=== PATIENT | female | born 1940 | race Caucasian/White ===

== ENCOUNTER 2017-04-25 15:35 | Emergency (ER) | payer MEDICARE, OTHER ==
--- NOTE | 2017-04-25 16:28 | ERPHSYRPT ---
- History of Present Illness Time Seen by Provider: 04/25/17 16:21 Source: patient Exam Limitations: no limitations Patient Subjective Stated Complaint: PT THOUGHT SHE WAS BEING TO BECOME GAULDED AND STARTED USING SAYMAN SALVE AND CORN STARTCH, THEN STARTED USING MONISTAT AND AZO FOR 8 DAYS. PT SEEN KATHERINE THREE WEEKS AGO AND RECEIVED PREDNISONE X 4 DAYS AND THE ITCHING AND BURNING BECAME WORSE. PT SEEN MARGRET ON 04/25 AND SAID ITS LICHEN PLANUS AND GIVE HER FLUCONZALE 100MG. C/O PAIN, BURNING AND ITCHING IN THE GROIN AND VAGINAL AREA. Triage Nursing Assessment: PT ALERT X 3. PT WLKED BACK INTO THE ER. RESPIRATIONS EVEN AND UNLABORED. SKIN PINK WARM AND DRY. Physician History: FOR THE PAST 4 DAYS PT HAS HAD ITCHING AND DISCOMFORT IN THE VULVA. PT HAS ALSO HAD DIAPHORESIS IN THE PAST 2 DAYS. PT DENIES ABDOMINAL PAIN, FEVER, NAUSEA, VOMITING, CHEST PAIN. Allergies/Adverse Reactions: adhesive Allergy (Verified 05/13/14 23:16) aspirin Allergy (Verified 05/13/14 23:16) bacitracin [From Neosporin ([id number])] Allergy (Verified 05/13/14 23:16) bacitracin zinc [From Neosporin ([id number])] Allergy (Verified 05/13/14 23: 16) Iodinated Contrast- Oral and IV Dye [Iodinated Contrast Media - IV Dye] Allergy (Verified 05/13/14 23:16) iodine Allergy (Verified 05/13/14 23:16) latex Allergy (Verified 05/13/14 23:16) neomycin sulfate [From Neosporin ([id number])] Allergy (Verified 05/13/14 23: 16) Penicillins Allergy (Verified 05/13/14 23:16) phenytoin sodium [From Dilantin] Allergy (Verified 05/13/14 23:16) phenytoin sodium extended [From Dilantin] Allergy (Verified 05/13/14 23:16) polymyxin B [From Neosporin ([id number])] Allergy (Verified 05/13/14 23:16) RUBBER Allergy (Uncoded 05/13/14 23:16) Home Medications: Diazepam [Valium] 2 mg PO UD PRN 05/13/14 [History] Docusate Sodium 100 mg [Colace 100 MG] 100 mg PO DAILY 05/13/14 [History] Hydrochlorothiazide 25 mg [hydroDIURIL 25 MG] 0 mg PO DAILY 05/13/14 [ History] Omeprazole Magnesium [Prilosec Otc] 20 mg PO DAILY 05/13/14 [History] Calcium Carbonate/Vitamin D3 [Os-Gonzalo 500+D Tablet] 1 each PO DAILY 04/25/17 [ History] Cyanocobalamin (Vitamin B-12) [Vitamin B-12] 1,000 mcg PO DAILY 04/25/17 [ History] Fluconazole 100 mg [Diflucan 100 MG] 100 mg PO DAILY 04/25/17 [History] Vitamin E 400 unit PO DAILY 04/25/17 [History] Hx Tetanus, Diphtheria Vaccination/Date Given: No Hx Influenza Vaccination/Date Given: Yes Hx Pneumococcal Vaccination/Date Given: No Immunizations Up to Date: Yes - Review of Systems Constitutional: No Fever Respiratory: No Dyspnea Cardiac: No Chest Pain Abdominal/Gastrointestinal: No Abdominal Pain, No Nausea, No Vomiting Genitourinary Symptoms: Vaginal Itching All Other Systems: Reviewed and Negative - Past Medical History Pertinent Past Medical History: Yes Neurological History: Epilepsy Cardiac History: Hypertension, Other Respiratory History: Bronchitis Endocrine Medical History: No Pertinent History Musculoskeletal History: Degenerative Disk Disease, Osteoarthritis, Osteoporosis GI Medical History: Diverticulitis History: No Pertinent History Psycho-Social History: Anxiety, Depression Female Reproductive Disorders: No Pertinent History Other Medical History: 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(NURSE PRESENT DURING EXAM).) Back Exam: normal range of motion Extremity Exam: normal inspection, No pedal edema Neurologic Exam: alert, cooperative Skin Exam: No cyanosis SpO2 Interpretation: normal SpO2: 95 Oxygen Delivery: Room Air - Course Nursing assessment & vital signs reviewed: Yes Ordered Tests: Active Orders 24 hr Category Date Time Status CBC W DIFF Stat Lab 04/25/17 16:50 Completed Erythrocyte Sedimentation Rate Stat Lab 04/25/17 16:50 Completed UA W/ MICROSCOPIC Stat Lab 04/25/17 17:05 Completed Medication Summary Discontinued Medications Generic Name Dose Route Start Last Admin Trade Name Freq PRN Reason Stop Dose Admin Naproxen 500 mg 04/25/17 17:36 04/25/17 17:45 Naprosyn 500 Mg PO 04/25/17 17:37 500 mg STAT ONE Administration Lab/Rad Data: Laboratory Result Diagrams 04/25/17 16:50 Laboratory Results 04/25/17 04/25/17 Range/Units 17:05 16:50 WBC 7.3 (4.0-10.5) K/mm3 RBC 3.92 L (4.1-5.4) M/mm3 Hgb 12.2 (12.0-16.0) gm/dl Hct 36.8 (35-47) % MCV 93.9 (78-100) fl MCH 31.1 (26-32) pg MCHC 33.2 (32-36) g/dl RDW 12.6 (11.5-14.0) % Plt Count 275 (150-450) K/mm3 MPV 9.4 (6-9.5) fl Gran % 53.6 (36.0-66.0) % Lymphocytes % 28.9 (24.0-44.0) % Monocytes % 11.5 (0.0-12.0) % Eosinophils % 5.2 H (0.00-5.0) % Basophils % 0.8 (0.0-0.4) % Basophils # 0.06 (0-0.4) ESR 10 (0-20) mm/hr Ur Collection Type VOID Urine Color YELLOW (YELLOW) Urine Appearance CLEAR (CLEAR) Urine pH 7.0 (5-6) Ur Specific [place] 1.010 (1.005-1.025) Urine Protein NEGATIVE (Negative) Urine Ketones NEGATIVE (NEGATIVE) Urine Blood NEGATIVE (0-5) Liang/ul Urine Nitrite NEGATIVE (NEGATIVE) Urine Bilirubin NEGATIVE (NEGATIVE) Urine Urobilinogen NORMAL (0-1) mg/dL Ur Leukocyte Esterase TRACE (NEGATIVE) Urine Microscopic WBC 2-5 (0-5) /HPF Ur Epithelial Cells RARE (FEW) /HPF Urine Bacteria RARE (NEGATIVE) /HPF Urine Glucose NEGATIVE (NEGATIVE) mg/dL Specimen Received 04/25/17 1710 - Departure Time of Disposition: 17:54 Departure Disposition: Home Clinical Impression: Discomfort of vulva Condition: Stable Critical Care Time: No Instructions: Vaginal Itching Additional Instructions: FOLLOW UP WITH PRIVATE DOCTOR TOMORROW. Prescriptions: Naproxen [Naprosyn] 500 mg PO Q12H PRN PRN #20 tablet PRN Reason: Pain
[2017-04-25 16:56] LABS: BASOPHIL % 0.8 % (0.0-0.4); Eosinophil % 5.2 % (0.00-5.0); Granulocytes % 53.6 % (36.0-66.0); Lymphocytes % 28.9 % (24.0-44.0); Mean Cell Volume 93.9 fl (78-100); Mean Corpuscular Hemoglobin 31.1 pg (26-32); Mean Platelet Volume 9.4 fl (6-9.5); Monocytes % 11.5 % (0.0-12.0); Platelet Count 275 K/mm3 (150-450); Red Blood Count 3.92 M/mm3 (4.1-5.4); Red Cell Distribution Width 12.6 % (11.5-14.0); White Blood Count 7.3 K/mm3 (4.0-10.5)
[2017-04-25 17:24] LABS: Erythrocyte Sedimentation Rate 10 mm/hr (0-20)
[2017-04-25 17:28] LABS: Bilirubin NEGATIVE (NEGATIVE); Blood NEGATIVE Ery/ul (0-5); COMPLETE URINE MICROSCOPIC? YES; Collection Type VOID; Glucose NEGATIVE (NEGATIVE); Leukocyte Esterase TRACE (NEGATIVE)
[2017-04-25 17:29] LABS: ADD URINE CULTURE? NO (NO); Bacteria RARE /HPF (NEGATIVE); Epithelial Cells RARE /HPF (FEW)
[2017-04-25 17:36] VITALS: BP 193/78; PULSE 89
[2017-04-25] MEDS ORDERED: Naprosyn 500 MG PO ONE (17:36)
[2017-04-25 17:38] VITALS: O2SAT 95
== END 2017-04-25 18:00 | disposition home or self-care (01) ==
LOC: ED 15:35
DX: L29.2 Pruritus vulvae (principal)
CPT/HCPCS: 36415; 81000; 85025; 85652; 99282; A9270-GY

== ENCOUNTER 2017-10-30 14:54 | Emergency (ER) | payer MEDICARE, OTHER ==
[2017-10-30] MEDS ORDERED: Sodium Chloride 0.9% 1000 ML 1,000 ML IV STA (15:21)
--- NOTE | 2017-10-30 15:27 | ERPHSYRPT ---
- History of Present Illness Time Seen by Provider: 10/30/17 15:22 Source: patient Exam Limitations: no limitations Patient Subjective Stated Complaint: generalized weakness for days Triage Nursing Assessment: states she has increased generalized weakness for days-worsening since yesterday. states 'just have no energy to do anything'. states while singing at [employer] yesterday she 'got winded and my chest was heavy only while singing'. skin warm and dry. normal bowel and bladder. decreased appetite today. denies pain Physician History: generalized weakness for days he has increased generalized weakness for days-worsening since yesterday. states 'just have no energy to do anything'. states while singing at [employer] yesterday she 'got winded and my chest was heavy only while singing'. skin warm and dry. normal bowel and bladder. decreased appetite today. denies pain Timing/Duration: day(s) Associated Symptoms: weakness Allergies/Adverse Reactions: adhesive Allergy (Verified 05/13/14 23:16) aspirin Allergy (Verified 10/30/17 15:09) bacitracin [From Neosporin ([id number])] Allergy (Verified 10/30/17 15:09) bacitracin zinc [From Neosporin ([id number])] Allergy (Verified 10/30/17 15: 09) Iodinated Contrast- Oral and IV Dye [Iodinated Contrast Media - IV Dye] Allergy (Verified 10/30/17 15:09) iodine Allergy (Verified 10/30/17 15:09) latex Allergy (Verified 10/30/17 15:09) neomycin sulfate [From Neosporin ([id number]-[id number])] Allergy (Verified 10/30/17 15: 09) Penicillins Allergy (Verified 10/30/17 15:09) phenytoin sodium [From Dilantin] Allergy (Verified 10/30/17 15:09) phenytoin sodium extended [From Dilantin] Allergy (Verified 10/30/17 15:09) polymyxin B [From Neosporin ([id number])] Allergy (Verified 05/13/14 23:16) prednisone Allergy (Verified 10/30/17 15:09) RUBBER Allergy (Uncoded 05/13/14 23:16) Home Medications: Diazepam [Valium] 2 mg PO UD PRN 05/13/14 [History] Docusate Sodium 100 mg [Colace 100 MG] 100 mg PO DAILY 05/13/14 [History] Hydrochlorothiazide 25 mg [hydroDIURIL 25 MG] 25 mg PO DAILY 05/13/14 [ History] Omeprazole Magnesium [Prilosec Otc] 20 mg PO DAILY 05/13/14 [History] Calcium Carbonate/Vitamin D3 [Os-Gonzalo 500+D Tablet] 1 each PO DAILY 04/25/17 [ History] Cyanocobalamin (Vitamin B-12) [Vitamin B-12] 1,000 mcg PO DAILY 04/25/17 [ History] Vitamin E 400 unit PO DAILY 04/25/17 [History] Lisinopril 5 mg [Zestril 5 MG] 5 mg PO 10/30/17 [History] Hx Tetanus, Diphtheria Vaccination/Date Given: Yes Hx Influenza Vaccination/Date Given: Yes Hx Pneumococcal Vaccination/Date Given: No Immunizations Up to Date: Yes - Review of Systems Constitutional: No Fever, No Chills Eyes: No Symptoms Ears, Nose, & Throat: No Symptoms Respiratory: No Cough, No Dyspnea Cardiac: No Chest Pain, No Edema, No Syncope Abdominal/Gastrointestinal: No Abdominal Pain, No Nausea, No Vomiting, No Diarrhea Genitourinary Symptoms: No Dysuria Musculoskeletal: No Back Pain, No Neck Pain Skin: No Rash Neurological: No Dizziness, No Focal Weakness, No Sensory Changes Psychological: No Symptoms Endocrine: No Symptoms All Other Systems: Reviewed and Negative - Past Medical History Pertinent Past Medical History: Yes Neurological History: Epilepsy Cardiac History: Hypertension, Other Respiratory History: Bronchitis Endocrine Medical History: No Pertinent History Musculoskeletal History: Degenerative Disk Disease, Osteoarthritis, Osteoporosis GI Medical History: Diverticulitis History: No Pertinent History Psycho-Social History: Anxiety, Depression Female Reproductive Disorders: No Pertinent History Other Medical History: 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 - Social History Smoking Status: Never smoker Exposure to second hand smoke: No Drug Use: none Patient Lives Alone: No - Nursing Vital Signs Nursing Vital Signs: Initial Vital Signs Temperature 97.5 F 10/30/17 15:01 Pulse Rate 90 10/30/17 15:01 Respiratory Rate 18 10/30/17 15:01 Blood Pressure 170/81 10/30/17 15:01 O2 Sat by Pulse Oximetry 97 10/30/17 15:01 Pain Scale Pain Intensity 0 - Physical Exam General Appearance: no apparent distress, alert Eye Exam: PERRL/EOMI, eyes nml inspection Ears, Nose, Throat Exam: normal ENT inspection, TMs normal, pharynx normal, moist mucous membranes Neck Exam: normal inspection, non-tender, supple, full range of motion Respiratory Exam: normal breath sounds, lungs clear, No respiratory distress Cardiovascular Exam: regular rate/rhythm, normal heart sounds, normal peripheral pulses Gastrointestinal/Abdomen Exam: soft, normal bowel sounds, No tenderness, No mass Back Exam: normal inspection, normal range of motion, No CVA tenderness, No vertebral tenderness Extremity Exam: normal inspection, normal range of motion, pelvis stable Neurologic Exam: alert, oriented x 3, cooperative, normal mood/affect, nml cerebellar function, nml station & gait, sensation nml, No motor deficits Skin Exam: normal color, warm, dry, No rash Lymphatic Exam: No adenopathy SpO2: 97 Oxygen Delivery: Room Air - Course Nursing assessment & vital signs reviewed: Yes EKG Interpreted by Me: Sinus Rhythm Ordered Tests: Active Orders 24 hr Category Date Time Status Clean Catch Urine Specimen STAT Care 10/30/17 15:16 Active EKG-ER Only STAT Care 10/30/17 15:19 Active CBC W DIFF Stat Lab 10/30/17 15:30 Completed CMP Stat Lab 10/30/17 15:30 Completed TROPONIN Stat Lab 10/30/17 15:30 Received UA W/ MICROSCOPIC Stat Lab 10/30/17 15:30 Completed Medication Summary Discontinued Medications Generic Name Dose Route Start Last Admin Trade Name Freq PRN Reason Stop Dose Admin Sodium Chloride 1,000 mls @ 999 mls/hr 10/30/17 15:21 10/30/17 15:36 Sodium Chloride 0.9% 1000 Ml IV 10/30/17 16:21 999 mls/hr .Q1H1M STA Administration Sodium Chloride Confirm 10/30/17 15:35 Sodium Chloride 0.9% 1000 Ml Administered 10/30/17 15:36 Dose 1,000 mls @ ud .ROUTE .STK-MED ONE Lab/Rad Data: Laboratory Result Diagrams 10/30/17 15:30 10/30/17 15:30 Laboratory Results 10/30/17 10/30/17 10/30/17 Range/Units 15:30 15:30 15:30 WBC 7.6 (4.0-10.5) K/mm3 RBC 4.31 (4.1-5.4) M/mm3 Hgb 13.0 (12.0-16.0) gm/dl Hct 39.0 (35-47) % MCV 90.5 (78-100) fl MCH 30.2 (26-32) pg MCHC 33.3 (32-36) g/dl RDW 12.6 (11.5-14.0) % Plt Count 282 (150-450) K/mm3 MPV 9.5 (6-9.5) fl Gran % 60.4 (36.0-66.0) % Lymphocytes % 27.6 (24.0-44.0) % Monocytes % 9.6 (0.0-12.0) % Eosinophils % 1.6 (0.00-5.0) % Basophils % 0.8 (0.0-0.4) % Basophils # 0.06 (0-0.4) Sodium 137 (136-145) mEq/L Potassium 3.7 (3.5-5.1) mEq/L Chloride 101 (98-107) mEq/L Carbon Dioxide 25.6 (21-32) mEq/L Anion Gap 14.2 (5-15) MEQ/L BUN 13 (9-20) mg/dL Creatinine 0.79 (0.55-1.30) mg/dl Estimated GFR > 60 ML/MIN Glucose 105 (70-110) MG/DL Calcium 9.8 (8.5-10.1) mg/dL Total Bilirubin 0.70 (0.2-1.0) mg/dL AST 17 (15-37) U/L ALT 19 (12-78) U/L Alkaline Phosphatase 51 (46-116) U/L Serum Total Protein 7.3 (6.4-8.2) gm/dL Albumin 3.7 (3.4-5.0) g/dL Ur Collection Type CLEAN CATCH Urine Color YELLOW (YELLOW) Urine Appearance CLEAR (CLEAR) Urine pH 6.0 (5-6) Ur Specific [place] 1.020 (1.005-1.025) Urine Protein NEGATIVE (Negative) Urine Ketones NEGATIVE (NEGATIVE) Urine Blood NEGATIVE (0-5) Liang/ul Urine Nitrite NEGATIVE (NEGATIVE) Urine Bilirubin NEGATIVE (NEGATIVE) Urine Urobilinogen NORMAL (0-1) mg/dL Ur Leukocyte Esterase TRACE (NEGATIVE) Urine Microscopic RBC 0-2 (0-2) /HPF Urine Microscopic WBC 0-2 (0-5) /HPF Ur Epithelial Cells FEW (FEW) /HPF Urine Bacteria FEW (NEGATIVE) /HPF Urine Mucus MODERATE (NEGATIVE) /HPF Urine Culture Reflexed NO (NO) Urine Glucose NEGATIVE (NEGATIVE) mg/dL Specimen Received 10-30 - Progress Progress: improved Counseled pt/family regarding: lab results, diagnosis, need for follow-up - Departure Time of Disposition: 16:53 Departure Disposition: Home Clinical Impression: Weakness generalized Medication side effect Qualifiers: Encounter type: initial encounter Qualified Code(s): T88.7XXA - Unspecified adverse effect of drug or medicament, initial encounter Condition: Stable Critical Care Time: No Referrals: PELON GUZMAN MD [Primary Care Provider] - Additional Instructions: Please follow the instructions given to you. Please take your medication as prescribed if given. If symptoms recur or get worse, come back to the emergency room if you cannot reach your primary care physician, or call your primary care physician for an appointment. Again if your symptoms get worse, come back to the emergency room. Thanks for visiting emergency room, and let us take care of you.
[2017-10-30] MEDS ORDERED: Sodium Chloride 0.9% 1000 ML 1,000 ML ONE (15:35)
[2017-10-30 15:43] LABS: BASOPHIL % 0.8 % (0.0-0.4); Eosinophil % 1.6 % (0.00-5.0); Granulocytes % 60.4 % (36.0-66.0); Lymphocytes % 27.6 % (24.0-44.0); Mean Cell Volume 90.5 fl (78-100); Mean Corpuscular Hemoglobin 30.2 pg (26-32); Mean Platelet Volume 9.5 fl (6-9.5); Monocytes % 9.6 % (0.0-12.0); Platelet Count 282 K/mm3 (150-450); Red Blood Count 4.31 M/mm3 (4.1-5.4); Red Cell Distribution Width 12.6 % (11.5-14.0); White Blood Count 7.6 K/mm3 (4.0-10.5)
[2017-10-30 16:17] LABS: ALBUMIN 3.7 g/dL (3.4-5.0); ALKALINE PHOSPHATASE 51 U/L (46-116); ANION GAP 14.2 MEQ/L (5-15); BLOOD UREA NITROGEN 13 mg/dL (9-20); CHLORIDE 101 mEq/L (98-107); Carbon Dioxide 25.6 mEq/L (21-32); Glucose 105 MG/DL (70-110); Potassium 3.7 mEq/L (3.5-5.1); SGOT/AST 17 U/L (15-37); SGPT/ALT 19 U/L (12-78); SODIUM 137 mEq/L (136-145); Total Protein 7.3 gm/dL (6.4-8.2)
[2017-10-30 16:39] LABS: Bilirubin NEGATIVE (NEGATIVE); Blood NEGATIVE Ery/ul (0-5); COMPLETE URINE MICROSCOPIC? YES; Collection Type CLEAN CATCH; Glucose NEGATIVE (NEGATIVE); Leukocyte Esterase TRACE (NEGATIVE)
[2017-10-30 16:40] LABS: ADD URINE CULTURE? NO (NO); Bacteria FEW /HPF (NEGATIVE); Epithelial Cells FEW /HPF (FEW); Mucus MODERATE /HPF (NEGATIVE); WBC 0-2 /HPF (0-5)
[2017-10-30 19:55] VITALS: BP 143/69; PULSE 76; O2SAT 96
== END 2017-10-30 20:00 | disposition home or self-care (01) ==
LOC: ED 14:54
DX: R53.1 Weakness (principal); T88.7XXA Unspecified adverse effect of drug or medicament, initial encounter; I10 Essential (primary) hypertension; Z79.899 Other long term (current) drug therapy
CPT/HCPCS: 36000; 36415; 80053; 81000; 84484; 85025; 93005; 99284